=== PATIENT | female | born 1995 | race Caucasian/White ===

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

== ENCOUNTER 2017-02-07 01:30 | Emergency (ER) | payer BC ==
[2017-02-07 01:35] VITALS: BP 128/87
[2017-02-07] MEDS ORDERED: Ondansetron ODT TAB* 4 MG PO ONE (05:40)
--- NOTE | 2017-02-07 06:26 | ED ---
Nedra Esteban Alfonso, scribed for Mandeep Vides MD on 02/07/17 at 0536 . Substance Abuse/Use - HPI Summary HPI Summary: This patient is a 21 year old F presenting to [facility] accompanied by two female friends with a chief complaint of ETOH abuse earlier tonight. She reports having multiple shots and two cups of jungle juice. The patient rates the pain 0/10 in severity. Symptoms alleviated by nothing. Patient reports stomach virus (few days), nausea, vomiting (bile and alcohol.), and diarrhea (5 days ago and now resolved). Patient denies abdominal pain and dysuria. She has an IUD. - History Of Current Complaint Chief Complaint: EDSubstanceAbuse Stated Complaint: ETOH Hx Obtained From: Patient ?: No - IUD Onset/Duration of Drug/ETOH Abuse: Hours Ingestion History: Type/Name Of Drug - ETOH, Approximate Time Of Ingestion - earlier tonight Overdose Characteristics: Oral Timing Of Abuse: Binge Use Character: Stuporous Alleviating Factor(s): Nothing Associated Signs And Symptoms: Other: - stomach virus (few days), nausea, vomiting (bile and alcohol.), and diarrhea (5 days ago and now resolved). Patient denies abdominal pain and dysuria. - Allergies/Home Medications Allergies/Adverse Reactions: Allergies Allergy/AdvReac Type Severity Reaction Status Date / Time Tree Nuts Allergy Severe Anaphylatic Verified 02/07/17 01:35 Shock PMH/Surg Hx/FS Hx/Imm Hx Respiratory History: Reports: Hx Asthma Opthamlomology History: Denies: Hx Legally Blind EENT History: Denies: Hx Deafness - Surgical History Surgery Procedure, Year, and Place: Uterine and elbow Infectious Disease History: No Infectious Disease History: Denies: Traveled Outside the [place] in Last 30 Days - Family History Known Family History: Positive: Cardiac Disease - Hx father and mother, Hypertension - Hx mother, Diabetes - Hx father - Social History Alcohol Use: Weekly Hx Substance Use: No Substance Use Type: Reports: None Hx Tobacco Use: No Smoking Status (MU): Never Smoked Tobacco Review of Systems Positive: Vomiting, Diarrhea, Nausea, Other - stomach virus (few days). Negative: Abdominal Pain Negative: dysuria Neurological: Other - ETOH abuse All Other Systems Reviewed And Are Negative: Yes Physical Exam - Summary Physical Exam Summary: Appearance: Well-appearing, Well-nourished Sin: Warm Eyes: Normal ENT: Normal Neck: Supple, nontender Respiratory: Clear to auscultation Cardiovascular: Normal Abdomen: Soft, nontender Bowel: Present Musculoskeletal: Normal, Strength/ROM Intact Neurological: Normal, A&Ox3 Psychiatric: Normal Triage Information Reviewed: Yes Vital Signs On Initial Exam: Initial Vitals Temp Pulse Resp BP Pulse Ox 98.1 F 72 18 128/87 100 02/07/17 01:33 02/07/17 01:33 02/07/17 01:33 02/07/17 01:33 02/07/17 01:33 Vital Signs Reviewed: Yes - Precious Coma Scale Coma Scale Total: 15 Diagnostics - Vital Signs Vital Signs Temp Pulse Resp BP Pulse Ox 02/07/17 01:33 98.1 F 72 18 128/87 100 - Laboratory Lab Statement: Any lab studies that have been ordered have been reviewed, and results considered in the medical decision making process. Course/Dx - Diagnoses Provider Diagnoses: Gastroenteritis Discharge - Discharge Plan Condition: Improved Disposition: HOME Prescriptions: Ondansetron ODT TAB* [Zofran 4 MG Odt TAB*] 4 mg PO Q6H PRN #10 tab.odt PRN Reason: Nausea/Vomiting Patient Education Materials: Acute Nausea and Vomiting (ED) Additional Instructions: PLEASE MAKE AN APPOINTMENT FIRST THING IN THE MORNING TO BE SEEN BY YOUR PRIMARY CARE DOCTOR WITHIN 1 WEEK PLEASE RETURN TO THE EMERGENCY ROOM IF YOU HAVE ANY WORSENING OR CONCERNING SYMPTOMS The documentation as recorded by the Nedra nicolas Alfonso accurately reflects the service I personally performed and the decisions made by me, Mandeep Vides MD.
== END 2017-02-07 06:58 | disposition home or self-care (01) ==
LOC: ED 01:30
DX: K52.9 Noninfective gastroenteritis and colitis, unspecified (principal); J45.909 Unspecified asthma, uncomplicated
CPT/HCPCS: 99282; A9270-GY